=== PATIENT | female | born 1980 | race Caucasian/White ===

== ENCOUNTER → 2022-11-26 | Outpatient (REF) | payer OTHER ==
[2022-11-26 16:36] LABS: APPEARANCE, URINE CLOUDY (CLEAR); BACTERIA, URINE AUTO 1+ (NEGATIVE); BILIRUBIN, URINE AUTO NEGATIVE (NEGATIVE); BLOOD, URINE BLOOD 3+ (NEGATIVE); COLOR, URINE AMBER (YELLOW); GLUCOSE, URINE (UA) AUTO NEGATIVE (NEGATIVE); KETONE, URINE AUTO NEGATIVE (NEGATIVE); LEUKOCYTE ESTERASE, URINE AUTO 3+ (NEGATIVE); MUCUS, URINE SMALL (NEGATIVE); NITRITE, URINE AUTO POSITIVE (NEGATIVE); PROTEIN, URINE AUTO 3+ mg/dL (NEGATIVE); RBC, URINE AUTO TNTC /HPF (0-3); SPECIFIC GRAVITY URINE AUTO 1.017 (1.002-1.035); SQUAMOUS EPITHELIAL CELL UR AU 4 /HPF (0-6); TRANSITIONAL EPITHELIAL AUTO 2 /HPF; UROBILINOGEN, URINE AUTO 0.2 mg/dL (0.0-2.0); WBC, URINE AUTO TNTC /HPF (0-3)
== END ==
LOC: M LAB REF 16:06
PROVIDERS: ATTEND Physician Assistant
DX: N39.0 Urinary tract infection, site not specified (principal); R30.0 Dysuria

== ENCOUNTER → 2023-01-18 | Outpatient (REF) | payer OTHER ==
[2023-01-19 10:23] LABS: APPEARANCE, URINE HAZY (CLEAR); COLOR, URINE YELLOW (YELLOW)
[2023-01-19 10:24] LABS: BILIRUBIN, URINE AUTO NEGATIVE (NEGATIVE); GLUCOSE, URINE (UA) AUTO NEGATIVE (NEGATIVE); KETONE, URINE AUTO NEGATIVE (NEGATIVE); LEUKOCYTE ESTERASE, URINE AUTO 1+ (NEGATIVE); NITRITE, URINE AUTO NEGATIVE (NEGATIVE); PROTEIN, URINE AUTO 1+ mg/dL (NEGATIVE); UROBILINOGEN, URINE AUTO 0.2 mg/dL (0.0-2.0)
[2023-01-19 10:25] LABS: BLOOD, URINE BLOOD 1+ (NEGATIVE)
[2023-01-19 10:27] LABS: BACTERIA, URINE AUTO 1+ (NEGATIVE); RBC, URINE AUTO 23 /HPF (0-3); SQUAMOUS EPITHELIAL CELL UR AU 6 /HPF (0-6); WBC, URINE AUTO 57 /HPF (0-3)
== END ==
LOC: M LAB REF 19:58
PROVIDERS: ATTEND Physician Assistant Medical
DX: N39.0 Urinary tract infection, site not specified (principal)

== ENCOUNTER 2023-01-19 20:44 | Emergency (ER) | payer OTHER ==
[~2023-01-19] VITALS: Ht 165.1 cm; Wt 93.0 kg
[2023-01-19 20:44] VITALS: TEMP 98.6
[2023-01-19 22:07] LABS: BASO % 0.4 % (0.0-1.0); EOS # 0.3 10^3/uL (0.0-0.5); EOS % 2.4 % (0.0-3.0); HEMATOCRIT 40.6 % (36.0-47.0); HEMOGLOBIN 13.7 g/dl (12.0-15.5); LYMPH # 3.7 10^3/uL (1.5-5.0); LYMPH % 33.7 % (24.0-44.0); MEAN CORPUSCULAR HEMOGLOBIN 28.6 pg (27.0-33.0); MEAN CORPUSCULAR HGB CONC 33.7 g/dl (32.0-36.5); MEAN CORPUSCULAR VOLUME 84.8 fl (80.0-96.0); MONO # 0.4 10^3/uL (0.0-0.8); MONO % 3.8 % (2.0-8.0); NEUTROPHILS # 6.6 10^3/uL (1.5-8.5); NEUTROPHILS % 59.4 % (36.0-66.0); PLATELET COUNT, AUTOMATED 267 10^3/uL (150-450); RED BLOOD COUNT 4.79 10^6/uL (4.00-5.40)
[2023-01-19 22:30] VITALS: BP 148/89; O2SAT 97
[2023-01-19 22:40] LABS: BLOOD UREA NITROGEN 12 MG/DL (9-23); CALCIUM LEVEL 9.6 MG/DL (8.5-10.1); CARBON DIOXIDE LEVEL 25 MMOL/L (20-31); CHLORIDE LEVEL 107 MMOL/L (98-107); CK-MB VALUE MASS < 1.0 NG/ML (<3.6); CREATININE FOR GFR 1.06 MG/DL (0.55-1.30); GLOMERULAR FILTRATION RATE > 60.0 (>58); GLUCOSE, FASTING 91 MG/DL (60-100); POTASSIUM SERUM 4.1 MMOL/L (3.5-5.1); SODIUM LEVEL 140 MMOL/L (136-145)
[2023-01-19 22:42] LABS: CPK CREATINE PHOSPHOKINASE 77 U/L (34-145); MB/CK RELATIVE INDEX 1.29 (< OR =4)
== END 2023-01-20 00:08 | disposition left against medical advice (07) ==
LOC: M ED 20:44
DX: Z53.21 Procedure and treatment not carried out due to patient leaving prior to being seen by health care provider (principal)

== ENCOUNTER → 2023-02-20 | Outpatient (REF) | payer OTHER ==
[2023-02-20 12:49] LABS: APPEARANCE, URINE HAZY (CLEAR); BACTERIA, URINE AUTO 2+ (NEGATIVE); BILIRUBIN, URINE AUTO NEGATIVE (NEGATIVE); BLOOD, URINE BLOOD 1+ (NEGATIVE); COLOR, URINE YELLOW (YELLOW); GLUCOSE, URINE (UA) AUTO NEGATIVE (NEGATIVE); KETONE, URINE AUTO NEGATIVE (NEGATIVE); LEUKOCYTE ESTERASE, URINE AUTO 3+ (NEGATIVE); MUCUS, URINE SMALL (NEGATIVE); NITRITE, URINE AUTO POSITIVE (NEGATIVE); PROTEIN, URINE AUTO NEGATIVE (NEGATIVE); RBC, URINE AUTO 3 /HPF (0-3); SPECIFIC GRAVITY URINE AUTO 1.011 (1.002-1.035); SQUAMOUS EPITHELIAL CELL UR AU 2 /HPF (0-6); UROBILINOGEN, URINE AUTO 0.2 mg/dL (0.0-2.0); WBC, URINE AUTO 47 /HPF (0-3)
== END ==
LOC: M LAB REF 12:26
PROVIDERS: ATTEND Physician Assistant
DX: N39.0 Urinary tract infection, site not specified (principal)

== ENCOUNTER → 2023-03-18 | Outpatient (CLI) | payer OTHER ==
[2023-03-18 17:06] LABS: PROLACTIN 3.12 NG/ML; THYROID STIMULATING HORMONE 2.315 uIU/ML (0.55-4.78)
[2023-03-18 17:09] LABS: FREE T4 0.96 NG/DL (0.89-1.76)
== END ==
LOC: M PLALAB 11:55
PROVIDERS: ATTEND Nurse Practitioner Family
DX: R10.2 Pelvic and perineal pain (principal); N64.4 Mastodynia; N64.3 Galactorrhea not associated with childbirth; N73.9 Female pelvic inflammatory disease, unspecified

== ENCOUNTER → 2023-04-21 | Outpatient (CLI) | payer OTHER | LOC: M WHC 11:04 | PROVIDERS: ATTEND Nurse Practitioner Family | DX: Z12.31 Encounter for screening mammogram for malignant neoplasm of breast (principal); N64.4 Mastodynia; N64.3 Galactorrhea not associated with childbirth ==

== ENCOUNTER → 2023-06-22 | Outpatient (CLI) | payer OTHER ==
[2023-06-22 16:34] LABS: FOLLICLE STIMULATING HORMONE 23.8 mIU/ML; LUTEINIZING HORMONE 26.8 mIU/ML
== END ==
LOC: M PLALAB 14:04
PROVIDERS: ATTEND Specialist
DX: R10.2 Pelvic and perineal pain (principal)

== ENCOUNTER → 2023-07-10 | Outpatient (CLI) | payer OTHER | LOC: M WHC 10:45 | PROVIDERS: ATTEND Specialist | DX: R10.2 Pelvic and perineal pain (principal); Z90.79 Acquired absence of other genital organ(s) ==

== ENCOUNTER → 2023-07-27 | Outpatient (CLI) | payer OTHER ==
[2023-07-27 11:59] LABS: BASO # 0.1 10^3/uL (0.0-0.2); BASO % 0.7 % (0.0-1.0); EOS # 0.2 10^3/uL (0.0-0.5); EOS % 2.3 % (0.0-3.0); HEMATOCRIT 39.4 % (36.0-47.0); HEMOGLOBIN 12.7 g/dl (12.0-15.5); LYMPH # 2.2 10^3/uL (1.5-5.0); LYMPH % 31.1 % (24.0-44.0); MEAN CORPUSCULAR HEMOGLOBIN 28.7 pg (27.0-33.0); MEAN CORPUSCULAR HGB CONC 32.2 g/dl (32.0-36.5); MEAN CORPUSCULAR VOLUME 88.9 fl (80.0-96.0); MONO # 0.4 10^3/uL (0.0-0.8); MONO % 5.5 % (2.0-8.0); NEUTROPHILS # 4.3 10^3/uL (1.5-8.5); NEUTROPHILS % 60.3 % (36.0-66.0); PLATELET COUNT, AUTOMATED 238 10^3/uL (150-450); RED BLOOD COUNT 4.43 10^6/uL (4.00-5.40); WHITE BLOOD COUNT 7.1 10^3/uL (4.0-10.0)
[2023-07-27 12:28] LABS: TOTAL IRON BINDING CAPACITY 491 UG/DL (250-425)
[2023-07-27 12:29] LABS: ALBUMIN 3.4 G/DL (3.2-5.2); ALKALINE PHOSPHATASE 83 U/L (46-116); ALT/SGPT 11 U/L (7.0-40); AST/SGOT 16 U/L (<34); BILIRUBIN,TOTAL 0.4 MG/DL (0.3-1.2); BLOOD UREA NITROGEN 19 MG/DL (9-23); CARBON DIOXIDE LEVEL 31 MMOL/L (20-31); CHLORIDE LEVEL 106 MMOL/L (98-107); CHOLESTEROL LEVEL 168 MG/DL (<200); CHOLESTEROL RISK RATIO 3.65 (<5); CREATININE FOR GFR 0.91 MG/DL (0.55-1.30); GLOMERULAR FILTRATION RATE > 60.0 (>58); GLUCOSE, FASTING 76 MG/DL (60-100); IRON (FE) 43 UG/DL (50-170); PERCENT SATURATION 8.8 % (13.2-45.0); POTASSIUM SERUM 4.5 MMOL/L (3.5-5.1); SODIUM LEVEL 140 MMOL/L (136-145); TOTAL PROTEIN 6.5 G/DL (5.7-8.2); TRIGLYCERIDES LEVEL 170 MG/DL (<150)
[2023-07-27 12:32] LABS: FREE T4 0.98 NG/DL (0.89-1.76); THYROID STIMULATING HORMONE 4.146 uIU/ML (0.55-4.78)
[2023-07-27 12:33] LABS: VITAMIN B12 LEVEL 241 PG/ML (211-911)
[2023-07-27 12:54] LABS: HEMOGLOBIN A1c 5.5 % (4.0-6.0)
== END ==
LOC: M PLALAB 08:21
PROVIDERS: ATTEND Nurse Practitioner Family
DX: E11.69 Type 2 diabetes mellitus with other specified complication (principal); I10 Essential (primary) hypertension; Z98.84 Bariatric surgery status

== ENCOUNTER → 2023-10-21 | Outpatient (CLI) | payer OTHER ==
[~2023-10-21] MED LIST: BIOT1CAP2 PO; CYAN500T14 PO; ESTR1TD TD; PROBCAP14 PO; VITA100093 PO
== END ==
LOC: M WHC 12:47
PROVIDERS: ATTEND Nurse Practitioner Family
DX: R92.8 Other abnormal and inconclusive findings on diagnostic imaging of breast (principal)

== ENCOUNTER 2023-11-02 11:10 | Day surgery (SDC) | payer OTHER ==
[~2023-11-02] VITALS: Ht 165.1 cm; Wt 108.7 kg
[2023-11-02] MEDS ORDERED: MIDAZOLAM INJ 2MG/2ML VIAL As Ordered ONE (11:33)
[2023-11-02] MEDS ORDERED: LR 1,000 ML IV SCH ×2 (11:45→15:20)
[2023-11-02] MEDS ORDERED: fentaNYL 100 MCG/2 ML INJECTION As Ordered ONE (12:00)
[2023-11-02] MEDS ORDERED: LIDOCAINE 2% 100MG/5ML SDV (FOR ANES.) As Ordered ONE (12:01)
[2023-11-02] MEDS ORDERED: ROCURONIUM BROMIDE 50MG/5ML VIAL As Ordered ONE (12:01)
[2023-11-02] MEDS ORDERED: propofoL 200 MG/20 ML VIAL As Ordered ONE (12:01)
[2023-11-02] MEDS ORDERED: ACETAMINOPHEN 1000MG 100ML IV BAG As Ordered ONE (12:03)
[2023-11-02] MEDS: OXYMETAZOLINE 0.05% NASAL SPRAY (AFRIN) As Ordered ONE (13:40)
[2023-11-02] MEDS: AMPICILLIN SOD/SULBACTAM SOD 3 GM in D5W MINI-BAG PLUS 100 ML IV ONE (13:45)
[2023-11-02] MEDS ORDERED: SUGAMMADEX SODIUM 500 MG/5 ML VIAL (BRIDION) As Ordered ONE (14:06)
[2023-11-02] MEDS ORDERED: ONDANSETRON 4MG 2ML VIAL As Ordered ONE (14:06)
[2023-11-02] MEDS: LIDOCAINE 2% W/ EPINEPHRINE 1.7 ML DENTAL INJ As Ordered ONE (14:10)
[2023-11-02] MEDS ORDERED: ONDANSETRON 4MG 2ML VIAL IV PRN (15:20)
[2023-11-02] MEDS: fentaNYL 100 MCG/2 ML INJECTION IV PRN (15:43)
[2023-11-02] MEDS: LABETALOL 100MG/20ML VIAL IV PRN (16:02)
[2023-11-02 16:05] VITALS: BP 170/103
[2023-11-02] MEDS: HYDROMORPHONE HCL 0.5 MG/ 0.5 ML SYRINGE IV PRN (16:05)
[2023-11-02] MEDS: oxyCODONE 5MG TAB PO PRN (16:20)
[2023-11-02 17:05] VITALS: BP 166/98; TEMP 97.4; O2SAT 95
== END 2023-11-02 17:24 | disposition home or self-care (01) ==
LOC: M SDC 11:10
PROVIDERS: ATTEND Dentist
DX: K02.9 Dental caries, unspecified (principal); I10 Essential (primary) hypertension; E11.9 Type 2 diabetes mellitus without complications; F32.A Depression, unspecified; N18.9 Chronic kidney disease, unspecified; Z98.84 Bariatric surgery status; Z88.2 Allergy status to sulfonamides; Z88.8 Allergy status to other drugs, medicaments and biological substances; Z88.1 Allergy status to other antibiotic agents; F12.10 Cannabis abuse, uncomplicated
CPT/HCPCS: 88300; C9290; D7140; D7210; D7240; D9223; J0131; J0295; J1100; J1170; J1920; J2250; J2405; J3010

== ENCOUNTER → 2023-11-13 | Outpatient (REF) | payer OTHER, MEDICAID | LOC: M SFHCPLAZ 12:20 | PROVIDERS: ATTEND Physician Assistant | DX: R39.9 Unspecified symptoms and signs involving the genitourinary system (principal) ==

== ENCOUNTER 2023-11-27 06:01 | Observation (INO) | payer OTHER ==
[2023-11-27] VITALS (7 sets, daily range): BP systolic 140–153; BP diastolic 70–91; TEMP 97–98.2; O2SAT 96–98
[~2023-11-27] VITALS: Ht 165.1 cm; Wt 108.8 kg
[2023-11-27] MEDS ORDERED: LR 1,000 ML IV SCH (06:35)
[2023-11-27 07:25] LABS: HEMATOCRIT 35.3 % (36.0-47.0); HEMOGLOBIN 11.6 g/dl (12.0-15.5); MEAN CORPUSCULAR HEMOGLOBIN 29.1 pg (27.0-33.0); MEAN CORPUSCULAR HGB CONC 32.9 g/dl (32.0-36.5); MEAN CORPUSCULAR VOLUME 88.7 fl (80.0-96.0); PLATELET COUNT, AUTOMATED 219 10^3/uL (150-450); RED BLOOD COUNT 3.98 10^6/uL (4.00-5.40)
[2023-11-27] MEDS ORDERED: propofoL 200 MG/20 ML VIAL As Ordered ONE (07:48)
[2023-11-27] MEDS ORDERED: fentaNYL 100 MCG/2 ML INJECTION As Ordered ONE (07:48)
[2023-11-27] MEDS ORDERED: LIDOCAINE 2% 100MG/5ML SDV (FOR ANES.) As Ordered ONE (07:48)
[2023-11-27] MEDS ORDERED: SUGAMMADEX SODIUM 500 MG/5 ML VIAL (BRIDION) As Ordered ONE (07:48)
[2023-11-27] MEDS ORDERED: MIDAZOLAM INJ 2MG/2ML VIAL As Ordered ONE (07:48)
[2023-11-27] MEDS ORDERED: ONDANSETRON 4MG 2ML VIAL As Ordered ONE (07:48)
[2023-11-27] MEDS ORDERED: dexmedeTOMIDine (4MCG/ML)200MCG/50ML BTL (PRECEDEX) As Ordered ONE (07:48)
[2023-11-27] MEDS ORDERED: ROCURONIUM BROMIDE 50MG/5ML VIAL As Ordered ONE (07:48)
[2023-11-27] MEDS ORDERED: ACETAMINOPHEN 1000MG 100ML IV BAG As Ordered ONE (07:50)
[2023-11-27] MEDS ORDERED: HYDROmorphone HCL 2MG/ML 1ML VIAL As Ordered ONE (08:34)
[2023-11-27] MEDS ORDERED: KETOROLAC 60MG 2ML VIAL As Ordered ONE (08:35)
[2023-11-27] MEDS: METHYLENE BLUE 0.5% (5MG/ML) 10 ML AMP (PROVAYBLUE) As Ordered ONE (09:49)
[2023-11-27] MEDS: INDOCYANINE GREEN 25MG VIAL (IC-GREEN) As Ordered ONE (09:49)
[2023-11-27] MEDS ORDERED: fentaNYL 100 MCG/2 ML INJECTION IV PRN (10:10)
[2023-11-27] MEDS ORDERED: PERCOCET 5MG/325MG TAB PO PRN (10:20)
[2023-11-27] MEDS ORDERED: ONDANSETRON 4MG 2ML VIAL IV PRN (10:20)
[2023-11-27] MEDS: oxyCODONE 5MG TAB PO PRN (10:22)
[2023-11-27] MEDS: ONDANSETRON 4MG 2ML VIAL IV PRN (10:22)
[2023-11-27] MEDS: MORPHINE 2 MG/ML 1ML VIAL IV PRN (10:23)
[2023-11-27] MEDS: METOCLOPRAMIDE INJ 10MG/2ML VIAL IV ONE (11:02)
[2023-11-27] MEDS: DEXTROSE 5% IV SCH (13:14)
[2023-11-27] MEDS: ADV IV SCH (13:14)
[2023-11-27] MEDS: PIPERACILLIN IV SCH (13:14)
[2023-11-27] MEDS: TAZOBACTAM SOD IV SCH (13:14)
[2023-11-27] MEDS: MINI IV SCH (13:14)
[2023-11-27] MEDS: LR 1,000 ML IV SCH ×2 (13:14→13:24)
[2023-11-27] MEDS ORDERED: ESTR1DIS TOP (14:18)
[2023-11-27] MEDS ORDERED: CVS5000S2 PO (14:19)
[2023-11-27] MEDS ORDERED: CHOL50TA8 PO (14:19)
[2023-11-27] MEDS ORDERED: HOME MED LIST COMPLETE! XX SCH (14:25)
[2023-11-27] MEDS: PERCOCET 5MG/325MG TAB PO PRN (15:35)
[2023-11-27] MEDS: KETOROLAC 30 MG/ML 1ML VIAL IV PRN (21:43)
[2023-11-28] VITALS: BP 131/73; TEMP 98.4; O2SAT 95
[2023-11-28 04:00] VITALS: BP 143/82; TEMP 97.9; O2SAT 96
[2023-11-28 07:39] LABS: BASO % 0.4 % (0.0-1.0); EOS # 0.3 10^3/uL (0.0-0.5); EOS % 3.3 % (0.0-3.0); HEMATOCRIT 32.3 % (36.0-47.0); HEMOGLOBIN 10.5 g/dl (12.0-15.5); LYMPH % 24.5 % (24.0-44.0); MEAN CORPUSCULAR HEMOGLOBIN 29.3 pg (27.0-33.0); MEAN CORPUSCULAR HGB CONC 32.5 g/dl (32.0-36.5); MEAN CORPUSCULAR VOLUME 90.2 fl (80.0-96.0); MONO # 0.5 10^3/uL (0.0-0.8); MONO % 5.6 % (2.0-8.0); NEUTROPHILS # 5.4 10^3/uL (1.5-8.5); NEUTROPHILS % 65.8 % (36.0-66.0); PLATELET COUNT, AUTOMATED 218 10^3/uL (150-450); RED BLOOD COUNT 3.58 10^6/uL (4.00-5.40); WHITE BLOOD COUNT 8.2 10^3/uL (4.0-10.0)
[2023-11-28 08:00] VITALS: BP 135/76; TEMP 98.5; O2SAT 97
[2023-11-28 08:06] LABS: ALBUMIN 3.1 G/DL (3.2-5.2); BILIRUBIN,TOTAL 0.4 MG/DL (0.3-1.2); CALCIUM LEVEL 8.4 MG/DL (8.5-10.1); CREATININE FOR GFR 1.08 MG/DL (0.55-1.30); GLOMERULAR FILTRATION RATE 59.5 (>58); POTASSIUM SERUM 4.2 MMOL/L (3.5-5.1)
[2023-11-28 08:35] VITALS: BP 146/89; TEMP 97.6; O2SAT 98
[2023-11-28] MEDS ORDERED: OXYC1TAB23 PO (08:36)
[2023-11-28] MEDS ORDERED: COLA100C5 PO (08:37)
[2023-11-28 10:12] VITALS: BP 146/89; TEMP 97.6; O2SAT 98
[2023-11-28] MEDS: PERCOCET 5MG/325MG TAB PO PRN (11:45)
== END 2023-11-28 12:45 | disposition home or self-care (01) ==
LOC: M SDC 06:01 → M RR INP 10:18 → M PED 11:49 → M MSPAV 11-28 08:30
PROVIDERS: ADMIT Specialist; ATTEND Specialist
DX: N83.202 Unspecified ovarian cyst, left side (principal); N73.6 Female pelvic peritoneal adhesions (postinfective); K91.71 Accidental puncture and laceration of a digestive system organ or structure during a digestive system procedure
CPT/HCPCS: 36415; 44227; 52332; 58661; 59200; 80053; 85025; 85027; 86850; 86900; 86901; 88305; C1769; J0131; J0665; J1100; J1171; J1885; J2250; J2405; J2543; J2765; J3010; Q9968

== ENCOUNTER → 2023-12-15 | Outpatient (CLI) | payer OTHER ==
[~2023-12-15] MED LIST changes: +CHOL50TA8 PO; +COLA100C5 PO; +CVS5000S2 PO; +ESTR1DIS TOP; +OXYC1TAB23 PO
[2023-12-15 14:40] LABS: ALBUMIN 3.8 G/DL (3.2-5.2); ALKALINE PHOSPHATASE 95 U/L (46-116); ALT/SGPT 31 U/L (7.0-40); AST/SGOT 32 U/L (<34); BILIRUBIN,TOTAL 0.2 MG/DL (0.3-1.2); BLOOD UREA NITROGEN 20 MG/DL (9-23); CALCIUM LEVEL 10.1 MG/DL (8.5-10.1); CARBON DIOXIDE LEVEL 28 MMOL/L (20-31); CHLORIDE LEVEL 108 MMOL/L (98-107); CREATININE FOR GFR 0.86 MG/DL (0.55-1.30); GLOMERULAR FILTRATION RATE > 60.0 (>58); GLUCOSE, FASTING 100 MG/DL (60-100); POTASSIUM SERUM 4.4 MMOL/L (3.5-5.1); SODIUM LEVEL 141 MMOL/L (136-145); TOTAL PROTEIN 7.7 G/DL (5.7-8.2)
== END ==
LOC: M PLALAB 10:07
PROVIDERS: ATTEND Specialist
DX: R10.2 Pelvic and perineal pain (principal)

== ENCOUNTER → 2024-01-29 | Outpatient (CLI) | payer OTHER ==
[2024-01-29 18:36] LABS: BASO # 0.1 10^3/uL (0.0-0.2); BASO % 0.6 % (0.0-1.0); EOS # 0.3 10^3/uL (0.0-0.5); EOS % 2.9 % (0.0-3.0); HEMATOCRIT 39.4 % (36.0-47.0); HEMOGLOBIN 12.6 g/dl (12.0-15.5); LYMPH # 2.7 10^3/uL (1.5-5.0); MEAN CORPUSCULAR HEMOGLOBIN 27.9 pg (27.0-33.0); MEAN CORPUSCULAR VOLUME 87.4 fl (80.0-96.0); MONO # 0.4 10^3/uL (0.0-0.8); MONO % 4.9 % (2.0-8.0); NEUTROPHILS # 5.4 10^3/uL (1.5-8.5); NEUTROPHILS % 61.3 % (36.0-66.0); PLATELET COUNT, AUTOMATED 283 10^3/uL (150-450); RED BLOOD COUNT 4.51 10^6/uL (4.00-5.40); WHITE BLOOD COUNT 8.8 10^3/uL (4.0-10.0)
[2024-01-29 18:55] LABS: PERCENT SATURATION 8.6 % (13.2-45.0)
== END ==
LOC: M PLALAB 13:05
PROVIDERS: ATTEND Nurse Practitioner Family
DX: E61.1 Iron deficiency (principal)

== ENCOUNTER → 2024-03-02 | Outpatient (REF) | payer OTHER ==
[2024-03-02 14:00] LABS: APPEARANCE, URINE HAZY (CLEAR); BACTERIA, URINE AUTO NEGATIVE (NEGATIVE); BILIRUBIN, URINE AUTO NEGATIVE (NEGATIVE); BLOOD, URINE BLOOD NEGATIVE (NEGATIVE); COLOR, URINE YELLOW (YELLOW); GLUCOSE, URINE (UA) AUTO NEGATIVE (NEGATIVE); KETONE, URINE AUTO NEGATIVE (NEGATIVE); LEUKOCYTE ESTERASE, URINE AUTO NEGATIVE (NEGATIVE); MUCUS, URINE SMALL (NEGATIVE); NITRITE, URINE AUTO NEGATIVE (NEGATIVE); PROTEIN, URINE AUTO 1+ mg/dL (NEGATIVE); RBC, URINE AUTO 1 /HPF (0-3); SPECIFIC GRAVITY URINE AUTO 1.019 (1.002-1.035); SQUAMOUS EPITHELIAL CELL UR AU 4 /HPF (0-6); WBC, URINE AUTO 1 /HPF (0-3)
== END ==
LOC: M LAB REF 12:24
PROVIDERS: ATTEND Physician Assistant
DX: N39.0 Urinary tract infection, site not specified (principal)

== ENCOUNTER → 2024-03-03 | Outpatient (CLI) | payer MEDICAID, OTHER ==
[2024-03-03 11:10] LABS: HEMATOCRIT 42.5 % (36.0-47.0); HEMOGLOBIN 13.7 g/dl (12.0-15.5); MEAN CORPUSCULAR HEMOGLOBIN 26.7 pg (27.0-33.0); MEAN CORPUSCULAR HGB CONC 32.2 g/dl (32.0-36.5); MEAN CORPUSCULAR VOLUME 82.7 fl (80.0-96.0); PLATELET COUNT, AUTOMATED 166 10^3/uL (150-450); RED BLOOD COUNT 5.14 10^6/uL (4.00-5.40); WHITE BLOOD COUNT 4.3 10^3/uL (4.0-10.0)
[2024-03-03 11:42] LABS: ALBUMIN 3.9 G/DL (3.2-5.2); BILIRUBIN,TOTAL 0.4 MG/DL (0.3-1.2); CALCIUM LEVEL 9.7 MG/DL (8.5-10.1); CREATININE FOR GFR 1.1 MG/DL (0.55-1.30); GLOMERULAR FILTRATION RATE 58.3 (>58); POTASSIUM SERUM 4.1 MMOL/L (3.5-5.1); TOTAL PROTEIN 7.9 G/DL (5.7-8.2)
== END ==
LOC: M LAB 10:17
PROVIDERS: ATTEND Physician Assistant Medical
DX: R50.9 Fever, unspecified (principal); J06.9 Acute upper respiratory infection, unspecified

== ENCOUNTER 2024-03-22 14:10 | Outpatient (CLI) | payer OTHER ==
[~2024-03-22] VITALS: Ht 165.1 cm; Wt 106.8 kg
[2024-03-22 14:10] VITALS: BP 133/78; O2SAT 97
[~2024-03-22 14:10] MED LIST changes: +ALBUTEROL SULFATE 2.5MG/0.5ML INH NEB SOLN INH PRN; +EPINEPHrine INJ 1 MG/ML 1ML AMP IM PRN; +diphenhydrAMINE 50MG/ML VIAL IV PRN; +methylPREDNISolone 125MG 2ML VIAL IV PRN
[2024-03-22 14:25] VITALS: BP 156/86; O2SAT 96
[2024-03-22 14:45] VITALS: BP 142/82; O2SAT 97
[2024-03-22] MEDS: IRON SUCROSE 25 MG in NS 23.75 ML IV ONE (15:06)
[2024-03-22] MEDS: IRON SUCROSE 300 MG in NS 250 ML OVER 90 MIN. IV ONE (15:48)
[2024-03-22 17:25] VITALS: BP 155/86; O2SAT 97
== END 2024-03-22 17:30 ==
LOC: M INFU 14:10
PROVIDERS: ATTEND Nurse Practitioner Family
DX: D50.9 Iron deficiency anemia, unspecified (principal); Z88.8 Allergy status to other drugs, medicaments and biological substances; Z88.1 Allergy status to other antibiotic agents
CPT/HCPCS: 96365; 96366; J1756

== ENCOUNTER 2024-04-05 13:31 | Outpatient (CLI) | payer OTHER ==
[~2024-04-05] VITALS: Ht 165.1 cm; Wt 107.3 kg
[2024-04-05] MEDS: IRON SUCROSE 300 MG in NS 250 ML OVER 90 MIN. IV ONE (13:53)
[2024-04-05 14:02] VITALS: BP 142/88; O2SAT 95
[2024-04-05 15:35] VITALS: BP 155/83; O2SAT 98
== END 2024-04-05 15:35 ==
LOC: M INFU 13:31
PROVIDERS: ATTEND Nurse Practitioner Family
DX: D50.9 Iron deficiency anemia, unspecified (principal); Z88.2 Allergy status to sulfonamides; Z88.8 Allergy status to other drugs, medicaments and biological substances
CPT/HCPCS: 96365; 96366; J1756

== ENCOUNTER → 2024-06-02 | Outpatient (CLI) | payer OTHER ==
[~2024-06-02] MED LIST changes: -ALBUTEROL SULFATE 2.5MG/0.5ML INH NEB SOLN INH PRN; -EPINEPHrine INJ 1 MG/ML 1ML AMP IM PRN; -diphenhydrAMINE 50MG/ML VIAL IV PRN; -methylPREDNISolone 125MG 2ML VIAL IV PRN
[2024-06-02 15:52] LABS: BASO % 0.5 % (0.0-1.0); EOS # 0.3 10^3/uL (0.0-0.5); EOS % 3.5 % (0.0-3.0); HEMATOCRIT 44.8 % (36.0-47.0); HEMOGLOBIN 14.6 g/dl (12.0-15.5); LYMPH # 2.6 10^3/uL (1.5-5.0); LYMPH % 30.7 % (24.0-44.0); MEAN CORPUSCULAR HGB CONC 32.6 g/dl (32.0-36.5); MEAN CORPUSCULAR VOLUME 85.8 fl (80.0-96.0); MONO # 0.4 10^3/uL (0.0-0.8); MONO % 4.3 % (2.0-8.0); NEUTROPHILS # 5.1 10^3/uL (1.5-8.5); NEUTROPHILS % 60.6 % (36.0-66.0); PLATELET COUNT, AUTOMATED 277 10^3/uL (150-450); RED BLOOD COUNT 5.22 10^6/uL (4.00-5.40); WHITE BLOOD COUNT 8.3 10^3/uL (4.0-10.0)
[2024-06-02 15:58] LABS: ERYTHROCYTE SEDIMENTATION RATE 22 mm/hr (0-20)
[2024-06-02 16:20] LABS: FREE T4 1.14 NG/DL (0.89-1.76); THYROID STIMULATING HORMONE 2.217 uIU/ML (0.55-4.78)
[2024-06-02 16:22] LABS: C REACTIVE PROTEIN QUANTITATIV < 0.50 MG/DL (<1.0); CREATININE, URINE 145.6 MG/DL; MAU/CREAT RATIO 67.3 MCG/MG (0.0-30.0)
[2024-06-02 16:23] LABS: IRON (FE) 56 UG/DL (50-170); PERCENT SATURATION 14.9 % (13.2-45.0); RHEUMATOID FACTOR QUANT < 3.5 IU/ML (<14); TOTAL IRON BINDING CAPACITY 376 UG/DL (250-425); VITAMIN B12 LEVEL 499 PG/ML (211-911)
[2024-06-02 16:26] LABS: ALBUMIN 4.1 G/DL (3.2-5.2); ALKALINE PHOSPHATASE 87 U/L (35-104); ALT/SGPT 25 U/L (7.0-40); AST/SGOT 24 U/L (<34); BILIRUBIN,TOTAL 0.3 MG/DL (0.3-1.2); BLOOD UREA NITROGEN 15 MG/DL (9-23); CARBON DIOXIDE LEVEL 30 MMOL/L (20-31); CHLORIDE LEVEL 105 MMOL/L (98-107); CHOLESTEROL LEVEL 226 MG/DL (<200); CHOLESTEROL RISK RATIO 5.88 (<5); CREATININE FOR GFR 1.16 MG/DL (0.55-1.30); GLOMERULAR FILTRATION RATE 60.7 (>58); GLUCOSE, FASTING 94 MG/DL (60-100); HDL CHOLESTEROL 38.4 MG/DL (>40); LDL CHOLESTEROL 141.6 MG/DL (<100); MAGNESIUM LEVEL 1.9 MG/DL (1.8-2.4); NON-HDL-C 187.6 MG/DL; POTASSIUM SERUM 4.7 MMOL/L (3.5-5.1); SODIUM LEVEL 142 MMOL/L (136-145); TOTAL PROTEIN 7.4 G/DL (5.7-8.2); TRIGLYCERIDES LEVEL 230 MG/DL (<150)
[2024-06-02 16:33] LABS: HEMOGLOBIN A1c 5.7 % (4.0-6.0)
[2024-06-05 13:53] LABS: ANA SCREEN, IFA NEGATIVE (NEGATIVE)
== END ==
LOC: M PLALAB 11:49
PROVIDERS: ATTEND Nurse Practitioner Family
DX: Z00.00 Encounter for general adult medical examination without abnormal findings (principal); M25.50 Pain in unspecified joint; E61.1 Iron deficiency; I10 Essential (primary) hypertension; E11.69 Type 2 diabetes mellitus with other specified complication; E55.9 Vitamin D deficiency, unspecified; E78.00 Pure hypercholesterolemia, unspecified; Z98.84 Bariatric surgery status

== ENCOUNTER → 2024-06-13 | Outpatient (CLI) | payer OTHER | LOC: M PLALAB 11:26 | PROVIDERS: ATTEND Nurse Practitioner Family | DX: M54.50 Low back pain, unspecified (principal); M25.551 Pain in right hip; M25.552 Pain in left hip ==

== ENCOUNTER → 2024-10-14 | Outpatient (CLI) | payer OTHER ==
[2024-10-14 14:23] LABS: BASO # 0.0 10^3/uL (0.0-0.2); BASO % 0.4 % (0.0-1.0); EOS # 0.3 10^3/uL (0.0-0.5); EOS % 2.7 % (0.0-3.0); LYMPH # 2.7 10^3/uL (1.5-5.0); LYMPH % 29.0 % (24.0-44.0); MONO # 0.4 10^3/uL (0.0-0.8); MONO % 3.8 % (2.0-8.0); NEUTROPHILS # 5.9 10^3/uL (1.5-8.5); NEUTROPHILS % 63.9 % (36.0-66.0); PLATELET COUNT, AUTOMATED 263 10^3/uL (150-450)
[2024-10-14 14:37] LABS: ALT/SGPT 39.0 U/L (7.0-40); AST/SGOT 40.0 U/L (<34); CALCIUM LEVEL 9.5 MG/DL (8.5-10.1); CARBON DIOXIDE LEVEL 31.0 MMOL/L (20-31); CHLORIDE LEVEL 103.0 MMOL/L (98-107); CHOLESTEROL LEVEL 164.0 MG/DL (<200); CHOLESTEROL RISK RATIO 3.28 (<5); CREATININE FOR GFR 1.2 MG/DL (0.55-1.30); GLOMERULAR FILTRATION RATE 58.0 (>58); LDL CHOLESTEROL 77.4 MG/DL (<100); NON-HDL-C 114.0 MG/DL; POTASSIUM SERUM 4.5 MMOL/L (3.5-5.1); SODIUM LEVEL 142.0 MMOL/L (136-145); TRIGLYCERIDES LEVEL 183.0 MG/DL (<150)
[2024-10-14 14:58] LABS: ESTIMATED AVERAGE GLUCOSE 126.0 MG/DL (60-110)
[2024-10-14 17:25] LABS: CREATININE, URINE 118.9 MG/DL; MALB URINE SIEMENS 13.0 MG/L; MAU/CREAT RATIO 10.9 MCG/MG (0.0-30.0)
== END ==
LOC: M PLALAB 10:39
PROVIDERS: ATTEND Nurse Practitioner Family
DX: E11.69 Type 2 diabetes mellitus with other specified complication (principal); E78.00 Pure hypercholesterolemia, unspecified; E61.1 Iron deficiency

== ENCOUNTER → 2024-10-17 | Outpatient (CLI) | payer OTHER ==
[2024-10-17 13:36] LABS: VITAMIN B12 LEVEL 732.0 PG/ML (211-911)
[2024-10-17 13:37] LABS: TOTAL 25(OH) VITAMIN D 30.4 NG/ML (20.0-100.0)
[2024-10-17 13:38] LABS: IRON (FE) 63.0 UG/DL (50-170); PERCENT SATURATION 17.6 % (13.2-45.0)
== END ==
LOC: M PLALAB 09:45
PROVIDERS: ATTEND Nurse Practitioner Family
DX: E61.1 Iron deficiency (principal); Z98.84 Bariatric surgery status; E55.9 Vitamin D deficiency, unspecified

== ENCOUNTER → 2024-10-27 | Outpatient (CLI) | payer OTHER | LOC: M WHC 11:58 | PROVIDERS: ATTEND Nurse Practitioner Family | DX: Z12.31 Encounter for screening mammogram for malignant neoplasm of breast (principal) ==

== ENCOUNTER → 2025-01-12 | Outpatient (REF) | payer OTHER ==
[2025-01-13 12:49] LABS: Trichomonas vaginalis (AMP) NOT DETECTED (NEGATIVE)
[2025-01-13 13:12] LABS: GC DNA AMPLIFICATION NEGATIVE (NEGATIVE)
== END ==
LOC: M SFHCWAGY 17:22
PROVIDERS: ATTEND Nurse Practitioner Family
DX: N73.9 Female pelvic inflammatory disease, unspecified (principal)

== ENCOUNTER → 2025-02-13 | Outpatient (CLI) | payer OTHER ==
[2025-02-13 10:52] LABS: BASO # 0.0 10^3/uL (0.0-0.2); BASO % 0.5 % (0.0-1.0); EOS # 0.3 10^3/uL (0.0-0.5); EOS % 3.9 % (0.0-3.0); LYMPH # 2.6 10^3/uL (1.5-5.0); LYMPH % 32.1 % (24.0-44.0); MONO # 0.3 10^3/uL (0.0-0.8); MONO % 4.1 % (2.0-8.0); NEUTROPHILS # 4.8 10^3/uL (1.5-8.5); NEUTROPHILS % 59.2 % (36.0-66.0); PLATELET COUNT, AUTOMATED 271 10^3/uL (150-450)
[2025-02-13 11:06] LABS: ESTIMATED AVERAGE GLUCOSE 94.0 MG/DL (60-110)
[2025-02-13 11:19] LABS: MALB URINE SIEMENS 14.0 MG/L
[2025-02-13 11:23] LABS: ALT/SGPT 17.0 U/L (7.0-40); AST/SGOT 22.0 U/L (<34); CALCIUM LEVEL 9.6 MG/DL (8.5-10.1); CARBON DIOXIDE LEVEL 32.0 MMOL/L (20-31); CHLORIDE LEVEL 105.0 MMOL/L (98-107); CHOLESTEROL LEVEL 172.0 MG/DL (<200); CHOLESTEROL RISK RATIO 4.53 (<5); CREATININE FOR GFR 1.16 MG/DL (0.55-1.30); GLOMERULAR FILTRATION RATE 60.4 (>58); LDL CHOLESTEROL 112.3 MG/DL (<100); NON-HDL-C 134.1 MG/DL; POTASSIUM SERUM 4.2 MMOL/L (3.5-5.1); SODIUM LEVEL 143.0 MMOL/L (136-145); TRIGLYCERIDES LEVEL 109.0 MG/DL (<150)
[2025-02-13 12:31] LABS: CREATININE, URINE 174.0 MG/DL; MAU/CREAT RATIO 8.0 MCG/MG (0.0-30.0)
== END ==
LOC: M PLALAB 07:22
PROVIDERS: ATTEND Nurse Practitioner Family
DX: E11.69 Type 2 diabetes mellitus with other specified complication (principal); E78.00 Pure hypercholesterolemia, unspecified; E61.1 Iron deficiency